=== PATIENT | female | born 1945 | race Caucasian/White ===

== ENCOUNTER 2024-10-09 17:42 | Inpatient (IN) ==
[2024-10-09] MEDS ORDERED: ONDANSETRON HCL/PF 4 MG/2 ML VIAL ONE (18:17)
[2024-10-09] MEDS: MORPHINE SULFATE 2 MG/ML CARTRIDGE IV ONE ×2 (18:17→20:16)
[2024-10-09] MEDS: ONDANSETRON HCL/PF 4 MG/2 ML VIAL IVP ONE (18:19)
--- NOTE | 2024-10-09 19:01 | Emergency Department Note ---
HPI - Fall General Chief Complaint: Fall Stated Complaint: right hip pain Time Seen by Provider: 10/09/24 17:59 Source: patient and EMS Mode of arrival: ambulance Limitations: no limitations History of Present Illness HPI Narrative: 78 yo female brought in from her home via EMS with increasing pain and inability, now, to move her right hip following a ground-level fall this morning. Patient relates that she simply lost her footing, may have then tripped over a small box and fell onto her right hip and buttocks. Reports that she was initially able to get up and walk around her house but her pain has increased throughout the afternoon. Discomfort is in the Rt groin, hip and buttocks. She is not taking any blood thinners. Allergies as noted. I have personally reviewed the TRIAGE and nursing intake notes and I agree with those. I also reviewed the available medical history and prior visit notes (where available) for this patient. No NVD, chest or abdominal pain. VSS, AAOx4, GCS=15, ambulatory, NAD. Tolerating PO. complaint: Reports fall Onset (ago): hour(s) (8) Fall from: Reports standing Fall witnessed: Reports no Place fall occurred: Reports home Loss of consciousness: none Prolonged down time: Reports no Symptoms prior to fall: Reports none Context: Reports tripped/slipped and history of frequent falls Location of injury: Reports buttocks Location of injury - extremities: Right: thigh Severity: moderate Quality: Reports dull, aching and throbbing Associated symptoms (after fall): Reports denies Related Data Home Medications Medication Instructions Recorded Confirmed albuterol sulfate 90 mcg/actuation 2 puff inhalation Q4H PRN wheezing 10/09/24 10/09/24 aerosol inhaler amitriptyline 25 mg tablet 25 mg PO DAILY 10/09/24 10/09/24 atorvastatin 20 mg tablet 20 mg PO BEDTIME 10/09/24 10/09/24 duloxetine 30 mg capsule,delayed 30 mg PO DAILY 10/09/24 10/09/24 release gabapentin 300 mg capsule 300 mg PO DAILY 10/09/24 10/09/24 hydrocodone 10 mg-acetaminophen 1 tab PO TID 10/09/24 10/09/24 325 mg tablet levocetirizine 5 mg tablet 5 mg PO DAILY 10/09/24 10/09/24 meloxicam 15 mg tablet 15 mg PO DAILY 10/09/24 10/09/24 montelukast 10 mg tablet 10 mg PO DAILY 10/09/24 10/09/24 Allergies Allergy/AdvReac Type Severity Reaction Status Date / Time amoxicillin (From Augmentin) Allergy Verified 10/09/24 17:53 clavulanic acid (From Allergy Verified 10/09/24 17:53 Augmentin) succinylcholine Allergy "IT TOOK Verified 10/09/24 17:53 ME A LONG TIME TO WAKE UP" Review of Systems 2 Status of ROS 10 or more systems reviewed and unremark able except as noted in history and below [facility] Medical History (Updated 10/09/24 @ 17:56 by Renetta Huntley, [place]) Glaucoma COPD (chronic obstructive pulmonary disease) Surgical History (Updated 10/09/24 @ 17:56 by Renetta Huntley RN) History of phacoemulsification of cataract of both eyes with intraocular lens implantation Status post right foot surgery History of hysterectomy Social History Smoking status: current every day smoker Feel stressed/tense/nervous/anxious/difficulty sleeping: to some extent Life stressor details: current medical condition Exam 2 Constitutional: normal general appearance, no apparent distress, average body habitus, no limitations and alert Vital Signs - 24 hr 10/09/24 17:42 10/09/24 18:00 10/09/24 18:15 Temperature 97.4 F L Pulse Rate 97 H 92 H 99 H Respiratory Rate 20 2 L 20 Blood Pressure 154/67 139/67 144/81 Pulse Oximetry 94 L 93 L 99 Oxygen Delivery Nc thod Room Air Room Air Room Air Oxygen Flow Rate 10/09/24 18:45 10/09/24 19:03 10/09/24 19:15 Temperature Pulse Rate 89 95 H 95 H Respiratory Rate 20 20 22 Blood Pressure 115/60 140/69 120/68 Pulse Oximetry 89 L 89 L 95 Oxygen Delivery Nc thod Room Air Room Air Room Air Oxygen Flow Rate 10/09/24 19:30 10/09/24 20:00 10/09/24 20:30 Temperature Pulse Rate 94 H 88 95 H Respiratory Rate 20 20 20 Blood Pressure 118/66 133/71 126/65 Pulse Oximetry 94 L 97 95 Oxygen Delivery Nc thod Room Air Room Air Nasal Cannula Oxygen Flow Rate 2 10/09/24 21:00 10/09/24 21:30 Temperature Pulse Rate 93 H 95 H Respiratory Rate 16 16 Blood Pressure 119/62 119/50 Pulse Oximetry 97 95 Oxygen Delivery Me thod Nasal Cannula Nasal Cannula Oxygen Flow Rate 2 2 HENMT: normocephalic, head/scalp atraumatic, hearing grossly normal bilaterally, external ears normal, oral mucous membranes normal, oropharynx normal and dentition normal Eyes: PERRL, EOMs intact bilaterally, conjunctivae normal, normal visual rodriguez by confrontation, alignment normal, periorbital findings normal and no nystagmus Neck/C-Spine: visual inspection normal, trachea midline, cervical spine nontender, cervical full ROM noted and supple Lymph: no lymphadenopathy noted Chest: inspection of chest normal and palpation of chest normal Respiratory: breath sounds equal bilaterally, normal respiratory effort, no retractions and no use of accessory muscles Cardiovascular: normal heart rate noted, regular rhythm noted and no JVD Gastrointestinal: abdomen normal to inspection and nontender to palpation Genitourinary: no CVA tenderness and bladder normal to palpation Back/Pelvis: spine normal to inspection and no paraspinal muscle tenderness noted Mild pain elicited with pelvic compression Rt side. No crepitance noted. Slight lateral deflection noted Rt side ischium. Extremities: RLE mildly fore-shortened. No internal or external rotation noted. Some TTP with internal rotation of thigh. 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 pain on palpation and movement Course Course Hospital Course: After review of the CC/HPI I performed a [id number] physical examination. At this point I was able to formulate a provisional DDx. Based on those findings, laboratory and radiology diagnostic studies were ordered including but not limited to CBC, CMP, lactic acid, pancreatic enzymes, cardiac enzymes, urinalysis, EKG, blood gases, screenings for COVID/influenza/strep/RSV, chest and/or abdominal xrays or CT scans in preparation of admission or transfer. Intravenous access was obtained where necessary. Blood and/or urine cultures were submitted If indicated for sepsis. Initial intervention in the ED included IV morphine and antiemetic, and the patient is now stable and more comfortable. In addition, I have initiated treatment in the form of urinary catheterization to help alleviate discomfort. Reevaluation(s) Reevaluation #1: Now much more comfortable. Pending CT results. Plain films radiograph appears to indicate fracture with moderate distraction to Rt inferior and superior pubic rami. She and daughter have been made aware and are in agreement with plan. Time: 18:59 Reevaluation #2: Patient care handed off to LÓPEZ Cobb for deposition (admission or transfer). She is comfortable. I suspect we will admit for comfort measures, case management and possible swing bed / rehab. Time: 20:14 Vital Signs Vital signs: Vital Signs Temperature 97.4 F L 10/09/24 17:42 Pulse Rate 97 H 10/09/24 17:42 Respiratory Rate 20 10/09/24 17:42 Blood Pressure 154/67 10/09/24 17:42 Pulse Oximetry 94 L 10/09/24 17:42 Oxygen Delivery Method Room Air 10/09/24 17:42 Temperature 97.4 F L 10/09/24 17:42 Pulse Rate 95 H 10/09/24 21:30 Respiratory Rate 16 10/09/24 21:30 Blood Pressure 119/50 10/09/24 21:30 Pulse Oximetry 95 10/09/24 21:30 Oxygen Delivery Method Nasal Cannula 10/09/24 21:30 Oxygen Flow Rate 2 10/09/24 21:30 MDM - Fall MDM Narrative Medical decision making narrative: Medical Decision Making this patient involved physical exam, CBC, CMP, PT, PTT, INR, urinalysis x 2, CT of the pelvis without contrast, plain film x-rays of the hip and pelvis, N12 or COVID. Differential Diagnosis Differential diagnosis: Likely other (Pelvic fracture, Rt hip fracture) Medical Records Attestation: I reviewed the patient's medical records. Lab Data Attestation: I reviewed the patient's lab results. Labs: Lab Results 10/09/24 10/09/24 10/09/24 Range/Units 18:50 18:55 21:50 WBC 15.8 H (4.3-9.3) K/uL RBC 4.1 (4.00-5.50) M/uL Hgb 11.7 L (12.5-15.8) gm/dL Hct 35.7 L (35.9-46.7) % MCV 86.8 (81.0-93.7) fl MCH 28.4 (27.6-32.2) pg MCHC 32.7 L (33.1-35.3) g/dl RDW 15.3 H (11.4-14.2) % Plt Count 319 (152-353) K/uL MPV 7.3 (6.9-10.8) fl Gran % 81.1 H (47.8-71.3) % Lymph % (Auto) 10.8 L (20.0-43.0) % [place] % (Auto) 7.5 (3.6-9.8) % Eos % (Auto) 0.4 (0.4-2.8) % Baso % (Auto) 0.2 (0.1-0.85) Lymph # (Auto) 1.7 (1.1-3.1) [place] # (Auto) 1.2 (1.1-3.1) Eos # (Auto) 0.1 (0.0-0.2) Baso # (Auto) 0.0 (0.0-0.1) Absolute Gran (auto) 12.8 H (2.3-6.0) PT 13.0 (12.1-15.0) SECONDS PT Normal Control 13.7 INR 0.93 APTT 31.0 (23.9-36.7) SECONDS Sodium 138 (136-145) mmol/L Potassium 4.0 (3.6-5.2) mmol/L Chloride 106.0 (98-107) mmol/L Carbon Dioxide 28 (21-32) mmol/L Anion Gap 4.0 (4-14) mEq/L BUN 11 (7-18) mg/dL Creatinine 0.6 (0.6-1.3) mg/dL Estimated GFR 92.4 (>59.9) Glucose 116 H (70-110) mg/dL Calcium 8.6 (8.5-10.1) mg/dL Total Bilirubin 0.62 (0.0-1.0) mg/dL AST 27 (15-37) U/L ALT 30 (30-65) U/L Alkaline Phosphatase 79 (50-136) U/L Total Protein 6.4 (6.4-8.2) g/dL Albumin 3.2 L (3.4-5.0) g/dL Urine Color Yellow Yellow (STRAW/YELL.) Urine Appearance Clear Clear (CLEAR) Ur Specific [place] 1.015 1.015 (1.001-1.035) Urine Protein Negative Negative (NEGATIVE) Urine Glucose (UA) Normal Normal (NORMAL) Urine Ketones Negative Negative (NEGATIVE) Urine Occult Blood Negative Negative (NEG - TRACE) Urine Nitrite Negative Negative (NEGATIVE) Urine Bilirubin Negative Negative (NEGATIVE) Urine Urobilinogen Normal Normal (NORMAL) Ur Leukocyte Esterase Negative Negative (NEGATIVE) Fluid pH 6.0 6.0 (5 - 9) COVID-19 (DEEPTHI) Not detected (Not Detectd) Imaging Data Imaging ordered: Chest x-ray (NAD) and CT scan - pelvis ( There is a displaced fracture involving the midportion of the right superior and inferior pubic rami.) Attestation: I have reviewed the pertinent imaging results. My impression: Inferior/superior pubic rami fractures, displaced Radiologist's impression: EXAM: CT PELVIS WITHOUT CONTRAST HISTORY: Pelvic fracture COMPARISON: None. TECHNIQUE: Axial images were acquired of the pelvis without IV contrast. Sagittal and coronal reformatted images were provided. All images were reviewed in a variety of windows and levels. RADIATION REDUCTION TECHNIQUE: Automated exposure control, Adjustment of the mA and/or kV according to patient size, or iterative reconstruction techniques were used. FINDINGS: Please note that lack of IV contrast limits evaluation of soft tissue structures and vascular detail. Constipation is noted. Status post hysterectomy. Limited visualization of the urinary bladder is grossly unremarkable. Moderate calcified atheromatous plaque burden is noted. There is a displaced fracture involving the midportion of the right superior and inferior pubic rami. There is grade 1 anterolisthesis of L4 over L5 with bilateral L4 pars defects. IMPRESSION: 1. There is a displaced fracture involving the midportion of the right superior and inferior pubic rami. THIS IS AN ELECTRONICALLY VERIFIED FINAL REPORT 10/09/2024 7:36 PM - Electronically signed by Jah Devries MD Core Measures AMI core measures followed: No Measure exclusions: not indicated Discharge Plan Discharge Patient Disposition: Admitted As Inpatient Condition: Stable Chief Complaint: Fall Clinical Impression: Pelvic fracture, Fracture of superior ramus of right pubis, Closed fracture of inferior pubic ramus, Leukocytosis, Intractable pain Prescriptions: No Action albuterol sulfate 90 mcg/actuation HFA aerosol inhaler 2 puff INHALATION Q4H PRN (Reason: wheezing) amitriptyline 25 mg tablet 25 mg PO DAILY atorvastatin 20 mg tablet 20 mg PO BEDTIME duloxetine 30 mg capsule,delayed release(DR/EC) 30 mg PO DAILY gabapentin 300 mg capsule 300 mg PO DAILY hydrocodone-acetaminophen 10-325 mg tablet 1 tab PO TID levocetirizine 5 mg tablet 5 mg PO DAILY meloxicam 15 mg tablet 15 mg PO DAILY montelukast 10 mg tablet 10 mg PO DAILY Print Language: Bur[place]ian Interventions: ED Discharge Assessment Last Done: 10/09/24 21:40 Emergency Department Charge Sheet Last Done: 10/09/24 22:17 Referrals: Kaley Nails NP [Primary Care Provider] - Time of Disposition: 21:30
[2024-10-09 19:27] LABS: Basophils%(Percent) Auto 0.2 (0.1-0.85); Eosinophils#(Absolute)Auto 0.1 (0.0-0.2); Eosinophils%(Percent) Auto 0.4 % (0.4-2.8); Granulocytes % - Auto 81.1 % (47.8-71.3); Granulocytes#(Absolute)- Auto 12.8 (2.3-6.0); Hematocrit 35.7 % (35.9-46.7); Mean Corpuscular Volume 86.8 fl (81.0-93.7); Monocytes #(Absolute)- Auto 1.2 (1.1-3.1); Monocytes %(Percent)- Auto 7.5 % (3.6-9.8); Platelet Count 319 K/uL (152-353); White Blood Count 15.8 K/uL (4.3-9.3)
[2024-10-09 19:38] LABS: Specific Gravity Urine 1.015 (1.001-1.035); Urine Appearance CLEAR (CLEAR); Urine Blood NEGATIVE (NEG - TRACE); Urine Color YELLOW (STRAW/YELL.)
[2024-10-09 19:39] LABS: Urine Urobilinogen Normal (NORMAL)
[2024-10-09 19:40] LABS: INR 0.93
[2024-10-09 22:03] LABS: Specific Gravity Urine 1.015 (1.001-1.035); Urine Appearance CLEAR (CLEAR); Urine Blood NEGATIVE (NEG - TRACE); Urine Color YELLOW (STRAW/YELL.); Urine Urobilinogen Normal (NORMAL)
[2024-10-09] MEDS ORDERED: DOCUSATE SODIUM 100 MG CAPSULE PO PRN (22:22)
[2024-10-09] MEDS ORDERED: MAGNESIUM, ALUMINUM HYDROXIDE 30 ML ORAL.SUSP PO PRN (22:22)
[2024-10-09] MEDS ORDERED: ONDANSETRON HCL/PF 4 MG/2 ML VIAL INJ PRN (22:22)
[2024-10-09] MEDS ORDERED: MORPHINE SULFATE 2 MG/ML CARTRIDGE IV PRN (22:22)
[2024-10-09] MEDS ORDERED: ACETAMINOPHEN 1000 MG/100 ML 1,000 MG/100 ML IV.SOLN IV PRN (22:27)
[2024-10-09] MEDS: 0.9 % SODIUM CHLORIDE 1000 ML 1,000 ML IV SCH (23:00)
[2024-10-09] MEDS: CEFTRIAXONE SODIUM 1 GM in 0.9 % SODIUM CHLORIDE MB+ 50 ML IV ONE (23:02)
[2024-10-09] MEDS ORDERED: 0.9 % SODIUM CHLORIDE MB+ 50 ML IV ONE (23:17)
[2024-10-09] MEDS ORDERED: CEFTRIAXONE SODIUM 1 GM VIAL ONE (23:18)
[2024-10-10] MEDS: HYDROCODONE/ACETAMINOPHEN 7.5/325MG TABLET PO PRN (00:20)
[2024-10-10 05:42] LABS: Basophils #(Absolute) Auto 0.1 (0.0-0.1); Basophils%(Percent) Auto 0.5 (0.1-0.85); Eosinophils#(Absolute)Auto 0.1 (0.0-0.2); Eosinophils%(Percent) Auto 1.2 % (0.4-2.8); Granulocytes % - Auto 67.3 % (47.8-71.3); Mean Corpuscular Volume 87.4 fl (81.0-93.7); Monocytes #(Absolute)- Auto 1.3 (1.1-3.1); Monocytes %(Percent)- Auto 11.2 % (3.6-9.8); Platelet Count 289 K/uL (152-353); White Blood Count 11.8 K/uL (4.3-9.3)
[2024-10-10] MEDS: NICOTINE 21 MG/HR .TD24 TD SCH (08:22)
[2024-10-10] MEDS: PANTOPRAZOLE SODIUM 40 MG TABLET.DR PO SCH (08:27)
--- NOTE | 2024-10-10 10:38 | History & Physical Report ---
H&P: HPI History of Present Illness Chief complaint: DISPLACED RAMI FRACTURE,LEUKOCYTOSIS,INTRACTABLE P Narrative: Patient reports she was packing up to move and tripped over a box. She admits pain 7/10 with any degree of movement. Denies any other complaints. No n/v. Admits she is chronically constipated. No dizziness or blurred vision. No chest pain. I have discussed the plan is for us to manage pain here until we can consult with Ortho on Saturday to see if it is necessary for her to undergo surgery. If needed at that time will be able to send out for surgery. If not we will have PT evaluate and if needed will admit transfer to facility with Rehab capability. Patient and son who is at bedside understand and agree to plan of care. Review of Systems Status of ROS 10 or more systems reviewed and unremark able except as noted in history and below [facility] Medical History (Updated 10/10/24 @ 17:34 by Daniella Guaman NP) Glaucoma COPD (chronic obstructive pulmonary disease) Surgical History (Updated 10/09/24 @ 17:56 by Renetta Huntley RN) History of phacoemulsification of cataract of both eyes with intraocular lens implantation Status post right foot surgery History of hysterectomy Social History Smoking status: current every day smoker Problems where you live: no known problems Highest level of school completed/degree received: high school Feel stressed/tense/nervous/anxious/difficulty sleeping: to some extent Life stressor details: current medical condition Meds Home Medications and Allergies Home Medications Medication Instructions Recorded Confirmed Type albuterol sulfate 90 mcg/actuation 2 puff inhalation Q4H PRN wheezing 10/09/24 10/09/24 History aerosol inhaler amitriptyline 25 mg tablet 25 mg PO DAILY 10/09/24 10/09/24 History atorvastatin 20 mg tablet 20 mg PO BEDTIME 10/09/24 10/09/24 History duloxetine 30 mg capsule,delayed 30 mg PO DAILY 10/09/24 10/09/24 History release gabapentin 300 mg capsule 300 mg PO DAILY 10/09/24 10/09/24 History hydrocodone 10 mg-acetaminophen 1 tab PO TID 10/09/24 10/09/24 History 325 mg tablet levocetirizine 5 mg tablet 5 mg PO DAILY 10/09/24 10/09/24 History meloxicam 15 mg tablet 15 mg PO DAILY 10/09/24 10/09/24 History montelukast 10 mg tablet 10 mg PO DAILY 10/09/24 10/09/24 History Allergies Allergy/AdvReac Type Severity Reaction Status Date / Time amoxicillin (From Augmentin) Allergy Verified 10/09/24 17:53 clavulanic acid (From Allergy Verified 10/09/24 17:53 Augmentin) succinylcholine Allergy "IT TOOK Verified 10/09/24 17:53 ME A LONG TIME TO WAKE UP" Exam Constitutional: normal general appearance, no apparent distress and average body habitus Vital Signs - 24 hr 10/09/24 17:42 10/09/24 18:00 10/09/24 18:15 Temperature 97.4 F L Pulse Rate 97 H 92 H 99 H Pulse Rate [Brachi al] Respiratory Rate 20 2 L 20 Blood Pressure 154/67 139/67 144/81 Blood Pressure [Le ft Arm] Pulse Oximetry 94 L 93 L 99 Oxygen Delivery Me thod Room Air Room Air Room Air Oxygen Flow Rate Fraction of Inspir ed Oxygen 10/09/24 18:45 10/09/24 19:03 10/09/24 19:15 Temperature Pulse Rate 89 95 H 95 H Pulse Rate [Brachi al] Respiratory Rate 20 20 22 Blood Pressure 115/60 140/69 120/68 Blood Pressure [Le ft Arm] Pulse Oximetry 89 L 89 L 95 Oxygen Delivery Me thod Room Air Room Air Room Air Oxygen Flow Rate Fraction of Inspir ed Oxygen 10/09/24 19:30 10/09/24 20:00 10/09/24 20:30 Temperature Pulse Rate 94 H 88 95 H Pulse Rate [Brachi al] Respiratory Rate 20 20 20 Blood Pressure 118/66 133/71 126/65 Blood Pressure [Le ft Arm] Pulse Oximetry 94 L 97 95 Oxygen Delivery Me thod Room Air Room Air Nasal Cannula Oxygen Flow Rate 2 Fraction of Inspir ed Oxygen 10/09/24 21:00 10/09/24 21:30 10/09/24 22:00 Temperature Pulse Rate 93 H 95 H 93 H Pulse Rate [Brachi al] Respiratory Rate 16 16 16 Blood Pressure 119/62 119/50 125/64 Blood Pressure [Le ft Arm] Pulse Oximetry 97 95 93 L Oxygen Delivery Me thod Nasal Cannula Nasal Cannula Nasal Cannula Oxygen Flow Rate 2 2 2 Fraction of Inspir ed Oxygen 10/09/24 22:23 10/09/24 23:00 10/09/24 23:29 Temperature 98.5 F Pulse Rate Pulse Rate [Brachi al] 89 Respiratory Rate 17 20 Blood Pressure Blood Pressure [Le ft Arm] 116/47 Pulse Oximetry 93 L 93 L Oxygen Delivery Me thod Room Air Nasal Cannula Oxygen Flow Rate 2 Fraction of Inspir ed Oxygen 28 10/09/24 23:55 10/09/24 23:55 10/10/24 03:47 Temperature 98.5 F 98.8 F Pulse Rate Pulse Rate [Brachi al] 89 90 Respiratory Rate 17 18 Blood Pressure Blood Pressure [Le ft Arm] 116/47 111/59 Pulse Oximetry 93 L 93 L Oxygen Delivery Me thod Room Air Nasal Cannula Room Air Oxygen Flow Rate 2 Fraction of Inspir ed Oxygen 10/10/24 08:00 Temperature 98.5 F Pulse Rate Pulse Rate [Brachi al] 94 H Respiratory Rate 20 Blood Pressure Blood Pressure [Le ft Arm] 138/66 Pulse Oximetry 94 L Oxygen Delivery Me thod Nasal Cannula Oxygen Flow Rate 2 Fraction of Inspir ed Oxygen HENMT: normocephalic and head/scalp atraumatic Eyes: conjunctivae normal and no scleral icterus Neck/C-Spine: visual inspection normal and trachea midline Chest: inspection of chest normal and palpation of chest normal Respiratory: breath sounds equal bilaterally, normal respiratory effort, clear to auscultation bilaterally, no wheezes, no rales and no retractions Cardiovascular: normal heart rate noted and regular rhythm noted Gastrointestinal: abdomen normal to inspection, abdomen soft to palpation, nontender to palpation, nondistended and normoactive bowel sounds (hypoactive) Genitourinary: deferred Extremities: normal to inspection and normal to palpation 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: adding 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 servicer II-XII 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, no movement abnormality noted, no focal motor deficit noted and no sensory deficits noted Psychiatry: oriented x3, thought process normal, cooperative, affect normal and psychomotor activity normal Skin: skin color normal and no rash Assessment and Plan Assessment and Plan (1) Fracture of pubic ramus: Qualifiers: Encounter type: initial encounter Laterality: right Code(s): S32.599A - Other specified fracture of unspecified pubis, initial encounter for closed fracture (2) Pain due to fracture: Code(s): T14.8XXA - Other injury of unspecified body region, initial encounter (3) Community acquired pneumonia of left lower lobe of lung: Code(s): J18.9 - Pneumonia, unspecified organism Plan Pain management with prn IV Morphine and hydrocodone PO Consult [facility] Saturday, transfer if surgery required. If no surgery required then will evaluate for Rehab swing bed admission with PT. Continue Home meds Reposition patient as possible to prevent skin breakdown. Start Azithromycin and Rocephin IV for pneumonia Left lower lobe Regular diet Results Labs Labs: CBC 10/09/24 10/10/24 Range/Units 18:50 05:40 WBC 15.8 H 11.8 H (4.3-9.3) K/uL RBC 4.1 3.8 L (4.00-5.50) M/uL Hgb 11.7 L 10.9 L (12.5-15.8) gm/dL Hct 35.7 L 33.0 L (35.9-46.7) % Plt Count 319 289 (152-353) K/uL Gran % 81.1 H 67.3 (47.8-71.3) % Lymph % (Auto) 10.8 L 19.8 L (20.0-43.0) % [place] % (Auto) 7.5 11.2 H (3.6-9.8) % Eos % (Auto) 0.4 1.2 (0.4-2.8) % Baso % (Auto) 0.2 0.5 (0.1-0.85) Lymph # (Auto) 1.7 2.3 (1.1-3.1) [place] # (Auto) 1.2 1.3 (1.1-3.1) Eos # (Auto) 0.1 0.1 (0.0-0.2) Baso # (Auto) 0.0 0.1 (0.0-0.1) Absolute Gran (auto) 12.8 H 8.0 H (2.3-6.0) CMP 10/09/24 10/10/24 18:50 05:40 Sodium 138 140 Potassium 4.0 4.0 Chloride 106.0 105.0 Carbon Dioxide 28 31 BUN 11 11 Creatinine 0.6 0.6 Glucose 116 H 93 Calcium 8.6 8.1 L Liver Function 10/09/24 Range/Units 18:50 Total Bilirubin 0.62 (0.0-1.0) mg/dL AST 27 (15-37) U/L ALT 30 (30-65) U/L Alkaline Phosphatase 79 (50-136) U/L Albumin 3.2 L (3.4-5.0) g/dL Urine 10/09/24 10/09/24 18:55 21:50 Urine Color Yellow Yellow Urine Appearance Clear Clear Ur Specific [place] 1.015 1.015 Urine Protein Negative Negative Urine Glucose (UA) Normal Normal Imaging Attestation: I have reviewed the pertinent imaging results.
[2024-10-10] MEDS: AZITHROMYCIN 500 MG 500 MG in 0.9 % SODIUM CHLORIDE 250 ML IV SCH (15:18)
[2024-10-10] MEDS: CEFTRIAXONE SODIUM 1 GM in 0.9 % SODIUM CHLORIDE MB+ 50 ML IV SCH (22:34)
[2024-10-11 05:08] LABS: Basophils%(Percent) Auto 0.3 (0.1-0.85); Eosinophils#(Absolute)Auto 0.2 (0.0-0.2); Eosinophils%(Percent) Auto 1.5 % (0.4-2.8); Granulocytes % - Auto 69.4 % (47.8-71.3); Granulocytes#(Absolute)- Auto 7.8 (2.3-6.0); Hematocrit 35.5 % (35.9-46.7); Mean Corpuscular Volume 86.5 fl (81.0-93.7); Monocytes %(Percent)- Auto 9.4 % (3.6-9.8); Platelet Count 298 K/uL (152-353); White Blood Count 11.2 K/uL (4.3-9.3)
[2024-10-11 05:43] LABS: Potassium 3.7 mmol/L (3.6-5.2)
--- NOTE | 2024-10-11 08:35 | Progress Note ---
Progress Note: Subjective Subjective Interval history: "I am feeling ok". Exam Constitutional: normal general appearance, no apparent distress, average body habitus, no limitations and alert Vital Signs - 24 hr 10/10/24 12:19 10/10/24 15:32 10/10/24 20:00 Temperature 98.8 F 98.9 F Pulse Rate [Brachi al] 94 H 90 88 Respiratory Rate 20 20 16 Blood Pressure [Le ft Arm] 140/69 135/66 149/74 Pulse Oximetry 94 L 95 92 L Oxygen Delivery Me thod Nasal Cannula Nasal Cannula Nasal Cannula Oxygen Flow Rate 2 1 1 10/10/24 23:31 10/11/24 00:02 10/11/24 03:47 Temperature 98.5 F 98.7 F Pulse Rate [Brachi al] 90 90 Respiratory Rate 19 19 Blood Pressure [Le ft Arm] 148/66 143/77 Pulse Oximetry 96 97 92 L Oxygen Delivery Me thod Room Air Room Air Room Air Oxygen Flow Rate 2 10/11/24 07:43 Temperature 98.6 F Pulse Rate [Brachi al] 91 H Respiratory Rate 20 Blood Pressure [Le ft Arm] 132/75 Pulse Oximetry 95 Oxygen Delivery Me thod Nasal Cannula Oxygen Flow Rate 2 HENMT: normocephalic, head/scalp atraumatic, hearing grossly normal bilaterally, external ears normal, oral mucous membranes normal, oropharynx normal and dentition normal Eyes: PERRL, EOMs intact bilaterally, conjunctivae normal, no scleral icterus, normal visual rodriguez by confrontation, alignment normal, periorbital findings normal and no nystagmus Neck/C-Spine: visual inspection normal, trachea midline, cervical spine nontender, cervical full ROM noted and supple Lymph: no lymphadenopathy noted Chest: inspection of chest normal and palpation of chest normal Respiratory: breath sounds equal bilaterally, normal respiratory effort, clear to auscultation bilaterally, no wheezes, no rales, no retractions and no use of accessory muscles Cardiovascular: normal heart rate noted, regular rhythm noted and no JVD Gastrointestinal: abdomen normal to inspection, abdomen soft to palpation, nontender to palpation, nondistended and normoactive bowel sounds (hypoactive) Genitourinary: no CVA tenderness and bladder normal to palpation deferred Back/Pelvis: spine normal to inspection and no paraspinal muscle tenderness noted Mild pain elicited with pelvic compression Rt side. No crepitance noted. Slight lateral deflection noted Rt side ischium. Extremities: normal to inspection and normal to palpation RLE mildly fore-shortened. No internal or external rotation noted. Some TTP with internal rotation of thigh. Neurology: bariatric nurse II-XII intact, no movement abnormality noted, no focal motor deficit noted, no sensory deficits noted, gait abnormality noted (unable to ac cess), speech normal, no pronator drift noted and GCS normal Psychiatry: Mental Status Exam documented within this Exam's Psych section mental status grossly normal, oriented x3, thought process normal, cooperative, affect normal and psychomotor activity normal Skin: skin color normal, no rash, no ecchymosis noted, no lacerations and skin turgor normal Progress Note: Objective Labs Labs: CBC 10/11/24 Range/Units 04:20 WBC 11.2 H (4.3-9.3) K/uL RBC 4.1 (4.00-5.50) M/uL Hgb 11.4 L (12.5-15.8) gm/dL Hct 35.5 L (35.9-46.7) % Plt Count 298 (152-353) K/uL Gran % 69.4 (47.8-71.3) % Lymph % (Auto) 19.4 L (20.0-43.0) % [place] % (Auto) 9.4 (3.6-9.8) % Eos % (Auto) 1.5 (0.4-2.8) % Baso % (Auto) 0.3 (0.1-0.85) Lymph # (Auto) 2.2 (1.1-3.1) [place] # (Auto) 1.0 L (1.1-3.1) Eos # (Auto) 0.2 (0.0-0.2) Baso # (Auto) 0.0 (0.0-0.1) Absolute Gran (auto) 7.8 H (2.3-6.0) CMP 10/11/24 04:20 Sodium 141 Potassium 3.7 Chloride 106.0 Carbon Dioxide 27 BUN 7 Creatinine 0.5 L Glucose 82 Calcium 8.4 L Urine 10/09/24 10/09/24 18:55 21:50 Urine Color Yellow Yellow Urine Appearance Clear Clear Ur Specific [place] 1.015 1.015 Urine Protein Negative Negative Urine Glucose (UA) Normal Normal Progress Note: A&P Assessment and Plan (1) Fracture of pubic ramus: Qualifiers: Encounter type: initial encounter Laterality: right (2) Pain due to fracture: (3) Community acquired pneumonia of left lower lobe of lung: Plan Pain management with prn IV Morphine and hydrocodone PO Consult [facility] Saturday, transfer if surgery required. If no surgery required then will evaluate for Rehab swing bed admission with PT. Continue Home meds Reposition patient as possible to prevent skin breakdown. Start Azithromycin and Rocephin IV for pneumonia Left lower lobe Regular diet Incentive Spirometer Continue Antibiotics for LLL Pneumonia, Rocephin and Azithromycin Repeat Chest Xray in am. Fall precautions Fall Risk Details Perry Fall Scale Risk Level: High Fall Risk Current Medications: Current Medications Hydrocodone Bitart/Acetaminophen (Hydrocodone/Acetaminophen 7.5/325mg Tablet) 1 each PO Q4H PRN PRN Reason: Moderate Pain SCALE 5-7 Last Admin: 10/11/24 05:02 Dose: 1 each Alprazolam (Alprazolam 1 Mg Tablet) 1 mg PO BEDTIME [facility] Docusate Sodium (Docusate Sodium 100 Mg Capsule) 100 mg PO DAILY PRN PRN Reason: Constipation Sodium Chloride (Sodium Chloride) 1,000 mls @ 75 mls/hr IV CONT [facility] Last Admin: 10/11/24 05:50 Dose: Not Given Acetaminophen (Acetaminophen 1000 Mg/100 Ml) 1,000 mg in 100 mls @ 400 mls/hr IV Q6H PRN PRN Reason: Pain Ceftriaxone Sodium 1 gm/ (Sodium Chloride) 50 mls @ 100 mls/hr IV Q24H [facility] Last Infusion: 10/10/24 23:04 Dose: Infused Azithromycin 500 mg/ Sodium (Chloride) 250 mls @ 250 mls/hr IV DAILY [facility] Last Infusion: 10/10/24 17:02 Dose: Infused Magnesium Hydroxide (Magnesium, Aluminum Hydroxide 30 Ml Oral.Susp) 30 ml PO DAILY PRN PRN Reason: Heartburn Morphine Sulfate (Morphine Sulfate 2 Mg/Ml Cartridge) 2 mg IV Q4H PRN PRN Reason: Severe Pain SCALE 8-10 Nicotine (Nicotine 21 Mg/Hr .Td24) 1 each TD DAILY [facility] Last Admin: 10/10/24 08:27 Dose: 1 each Ondansetron HCl (Ondansetron Hcl/Pf 4 Mg/2 Ml Vial) 4 mg INJ Q6H PRN PRN Reason: Nausea And Vomiting Pantoprazole Sodium (Pantoprazole Sodium 40 Mg Tablet.Dr) 40 mg PO DAILY [facility] Last Admin: 10/10/24 08:27 Dose: 40 mg Time Spent With Patient Time: Total time spent is greater than 50% in coordination of care (as documented) at patient's floor/unit and/or counseling patient: Time with patient: greater than 35 minutes
[2024-10-11] MEDS: ALPRAZolam 1 MG TABLET PO SCH ×2 (08:38→20:42)
[2024-10-12 05:25] LABS: Basophils%(Percent) Auto 0.3 (0.1-0.85); Eosinophils#(Absolute)Auto 0.3 (0.0-0.2); Eosinophils%(Percent) Auto 2.2 % (0.4-2.8); Granulocytes % - Auto 68.5 % (47.8-71.3); Granulocytes#(Absolute)- Auto 8.1 (2.3-6.0); Hematocrit 35.8 % (35.9-46.7); Mean Corpuscular Volume 86.3 fl (81.0-93.7); Monocytes #(Absolute)- Auto 1.4 (1.1-3.1); Monocytes %(Percent)- Auto 11.5 % (3.6-9.8); Platelet Count 308 K/uL (152-353); White Blood Count 11.9 K/uL (4.3-9.3)
[2024-10-12 05:35] LABS: Potassium 3.6 mmol/L (3.6-5.2)
[2024-10-12] MEDS: DULOXETINE HCL 30 MG CAPSULE.DR PO SCH (11:46)
[2024-10-12] MEDS: AMITRIPTYLINE HCL 10 MG TABLET PO SCH (11:46)
[2024-10-12] MEDS: MELOXICAM 7.5 MG TABLET PO SCH (11:47)
[2024-10-12] MEDS: GABAPENTIN 300 MG CAPSULE PO SCH (11:47)
[2024-10-12] MEDS: MONTELUKAST SODIUM 10 MG TABLET PO SCH (11:47)
--- NOTE | 2024-10-12 15:13 | Progress Note ---
Progress Note: Subjective Subjective Interval history: "I am feeling ok". Exam Exam: Ms. Schultz is in bed this morning remaints on O2. Will attempt to titrate off. Vitals and labs at baseline. Family is wishing for her to transfer. Case was discused with Roberto Anaya at [facility] by staff and patient is not a surgical candidate. Family is still interested in seeking othopedic care and they are aware that it is not availalable on campus. Will consult [facility] for reassurance that patient is appropriate for OP. 1600 Consult with [facility] will contact orthop edics for further consult. Advised aleksandar larry rucker. Constitutional: normal general appearance, no apparent distress, average body habitus, no limitations and alert Vital Signs - 24 hr 10/11/24 15:56 10/11/24 19:16 10/11/24 20:11 Temperature 97.9 F 98.3 F Pulse Rate [Brachi al] 91 H 96 H Pulse Rate [Left B rachial] 96 H Respiratory Rate 20 22 Blood Pressure [Le ft Arm] 160/79 157/78 Pulse Oximetry 94 L 95 Oxygen Delivery Me thod Nasal Cannula Nasal Cannula Nasal Cannula Oxygen Flow Rate 2 2 2 Fraction of Inspir ed Oxygen 28 10/12/24 00:00 10/12/24 04:00 10/12/24 07:49 Temperature 98.4 F 97.6 F 98.5 F Pulse Rate [Brachi al] 82 87 Pulse Rate [Left B rachial] 82 87 89 Respiratory Rate 18 18 16 Blood Pressure [Le ft Arm] 125/63 153/73 154/75 Pulse Oximetry 92 L 96 93 L Oxygen Delivery Me thod Nasal Cannula Nasal Cannula Nasal Cannula Oxygen Flow Rate 2 2 2 Fraction of Inspir ed Oxygen 10/12/24 12:00 Temperature 97.9 F Pulse Rate [Brachi al] Pulse Rate [Left B rachial] 96 H Respiratory Rate 16 Blood Pressure [Le ft Arm] 140/64 Pulse Oximetry 93 L Oxygen Delivery Me thod Nasal Cannula Oxygen Flow Rate 2 Fraction of Inspir ed Oxygen HENMT: normocephalic, head/scalp atraumatic, hearing grossly normal bilaterally, external ears normal, oral mucous membranes normal, oropharynx normal and dentition normal Eyes: PERRL, EOMs intact bilaterally, conjunctivae normal, no scleral icterus, normal visual rodriguez by confrontation, alignment normal, periorbital findings normal and no nystagmus Neck/C-Spine: visual inspection normal, trachea midline, cervical spine nont cayetano, cervical full ROM noted and supple Lymph: no lymphadenopathy noted Chest: inspection of chest normal and palpation of chest normal Respiratory: breath sounds equal bilaterally, normal respiratory effort, clear to auscultation bilaterally, no wheezes, no rales, no retractions and no use of accessory muscles Cardiovascular: normal heart rate noted, regular rhythm noted and no JVD Gastrointestinal: abdomen normal to inspection, abdomen soft to palpation, nontender to palpation, nondistended and normoactive bowel sounds (hypoactive) Genitourinary: no CVA tenderness and bladder normal to palpation deferred Back/Pelvis: spine normal to inspection and no paraspinal muscle tenderness noted Mild pain elicited with pelvic compression Rt side. No crepitance noted. Slight lateral deflection noted Rt side ischium. Extremities: normal to inspection and normal to palpation RLE mildly fore-shortened. No internal or external rotation noted. Some TTP with internal rotation of thigh. 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, no movement abnormality noted, no focal motor deficit noted, no sensory deficits noted, gait abnormality noted (unable to access), speech normal, no pronator drift noted and GCS normal Psychiatry: Mental Status Exam documented within this Exam's Psych section mental status grossly normal, oriented x3, thought process normal, cooperative, affect normal and psychomotor activity normal Skin: skin color normal, no rash, no ecchymosis noted, no lacerations and skin turgor normal Progress Note: Objective Labs Labs: CBC 10/12/24 Range/Units 05:15 WBC 11.9 H (4.3-9.3) K/uL RBC 4.2 (4.00-5.50) M/uL Hgb 11.8 L (12.5-15.8) gm/dL Hct 35.8 L (35.9-46.7) % Plt Count 308 (152-353) K/uL Gran % 68.5 (47.8-71.3) % Lymph % (Auto) 17.5 L (20.0-43.0) % [place] % (Auto) 11.5 H (3.6-9.8) % Eos % (Auto) 2.2 (0.4-2.8) % Baso % (Auto) 0.3 (0.1-0.85) Lymph # (Auto) 2.1 (1.1-3.1) [place] # (Auto) 1.4 (1.1-3.1) Eos # (Auto) 0.3 H (0.0-0.2) Baso # (Auto) 0.0 (0.0-0.1) Absolute Gran (auto) 8.1 H (2.3-6.0) CMP 10/12/24 05:15 Sodium 140 Potassium 3.6 Chloride 105.0 Carbon Dioxide 29 BUN 8 Creatinine 0.6 Glucose 70 Calcium 8.4 L Urine 10/09/24 10/09/24 18:55 21:50 Urine Color Yellow Yellow Urine Appearance Clear Clear Ur Specific [place] 1.015 1.015 Urine Protein Negative Negative Urine Glucose (UA) Normal Normal Progress Note: A&P Assessment and Plan (1) Fracture of pubic ramus: Assessment and Plan: Consult PT/OT Consult [facility] Qualifiers: Encounter type: initial encounter Laterality: right (2) Pain due to fracture: Assessment and Plan: norco 7.5 q4hrs prn Morphine 2mg IV q4hrs prn (3) Community acquired pneumonia of left lower lobe of lung: Assessment and Plan: Zpak Rocephin 1gm IV daily Plan Pain management with prn IV Morphine and hydrocodone PO Consult [facility] Continue Home meds Start Azithromycin and Rocephin IV for pneumonia Left lower lobe Regular diet Incentive Spirometer Continue Antibiotics for LLL Pneumonia, Rocephin and Azithromycin Fall precautions Fall Risk Details Perry Fall Scale Risk Level: High Fall Risk Current Medications: Current Medications Hydrocodone Bitart/Acetaminophen (Hydrocodone/Acetaminophen 7.5/325mg Tablet) 1 each PO Q4H PRN PRN Reason: Moderate Pain SCALE 5-7 Last Admin: 10/12/24 11:53 Dose: 1 each Alprazolam (Alprazolam 1 Mg Tablet) 1 mg PO BEDTIME [facility]LS[facility] Last Admin: 10/11/24 20:42 Dose: 1 mg Amitriptyline HCl (Amitriptyline Hcl 10 Mg Tablet) 25 mg PO DAILY [facility] Last Admin: 10/12/24 11:46 Dose: 25 mg Atorvastatin Calcium (Atorvastatin Calcium 10 Mg Tablet) 20 mg PO BEDTIME [facility]LS[facility] Cetirizine HCl (Cetirizine Hcl 10 Mg Tablet) 5 mg PO BEDTIME [facility] Docusate Sodium (Docusate Sodium 100 Mg Capsule) 100 mg PO DAILY PRN PRN Reason: Constipation Docusate Sodium (Docusate Sodium 100 Mg Capsule) 100 mg PO BID [facility] Duloxetine HCl (Duloxetine Hcl 30 Mg Capsule.Dr) 30 mg PO DAILY [facility] Last Admin: 10/12/24 11:46 Dose: 30 mg Gabapentin (Gabapentin 300 Mg Capsule) 300 mg PO DAILY [facility] Last Admin: 10/12/24 11:47 Dose: 300 mg Sodium Chloride (Sodium Chloride) 1,000 mls @ 75 mls/hr IV CONT [facility] Last Admin: 10/12/24 11:47 Dose: 75 mls/hr Acetaminophen (Acetaminophen 1000 Mg/100 Ml) 1,000 mg in 100 mls @ 400 mls/hr IV Q6H PRN PRN Reason: Pain Ceftriaxone Sodium 1 gm/ (Sodium Chloride) 50 mls @ 100 mls/hr IV Q24H [facility] Last Infusion: 10/12/24 05:32 Dose: Infused Azithromycin 500 mg/ Sodium (Chloride) 250 mls @ 250 mls/hr IV DAILY [facility] Last Infusion: 10/12/24 09:44 Dose: Infused Magnesium Hydroxide (Magnesium, Aluminum Hydroxide 30 Ml Oral.Susp) 30 ml PO DAILY PRN PRN Reason: Heartburn Meloxicam (Meloxicam 7.5 Mg Tablet) 15 mg PO DAILY [facility] Last Admin: 10/12/24 11:47 Dose: 15 mg Montelukast Sodium (Montelukast Sodium 10 Mg Tablet) 10 mg PO DAILY [facility] Last Admin: 10/12/24 11:47 Dose: 10 mg Morphine Sulfate (Morphine Sulfate 2 Mg/Ml Cartridge) 2 mg IV Q4H PRN PRN Reason: Severe Pain SCALE 8-10 Nicotine (Nicotine 21 Mg/Hr .Td24) 1 each TD DAILY [facility] Last Admin: 10/12/24 08:45 Dose: 1 each Ondansetron HCl (Ondansetron Hcl/Pf 4 Mg/2 Ml Vial) 4 mg INJ Q6H PRN PRN Reason: Nausea And Vomiting Pantoprazole Sodium (Pantoprazole Sodium 40 Mg Tablet.Dr) 40 mg PO DAILY [facility] Last Admin: 10/12/24 08:45 Dose: 40 mg Time Spent With Patient Time: Total time spent is greater than 50% in coordination of care (as documented) at patient's floor/unit and/or counseling patient:
[2024-10-12] MEDS: DOCUSATE SODIUM 100 MG CAPSULE PO SCH (21:19)
[2024-10-12] MEDS: CETIRIZINE HCL 10 MG TABLET PO SCH (21:19)
[2024-10-12] MEDS: ATORVASTATIN CALCIUM 10 MG TABLET PO SCH (21:26)
[2024-10-13] MEDS: 0.9 % SODIUM CHLORIDE 1000 ML 1,000 ML IV SCH (00:59)
[2024-10-13 05:41] LABS: Basophils%(Percent) Auto 0.4 (0.1-0.85); Eosinophils#(Absolute)Auto 0.3 (0.0-0.2); Eosinophils%(Percent) Auto 2.7 % (0.4-2.8); Granulocytes % - Auto 60.6 % (47.8-71.3); Hematocrit 33.9 % (35.9-46.7); Mean Corpuscular Volume 85.9 fl (81.0-93.7); Monocytes #(Absolute)- Auto 1.2 (1.1-3.1); Monocytes %(Percent)- Auto 12.6 % (3.6-9.8); Platelet Count 308 K/uL (152-353); White Blood Count 9.9 K/uL (4.3-9.3)
[2024-10-13 05:52] LABS: Potassium 3.4 mmol/L (3.6-5.2)
[2024-10-13] MEDS: POTASSIUM CHLORIDE 20 MEQ TAB.ER.PRT PO SCH (08:16)
[2024-10-13] MEDS ORDERED: NON-FORMULARY MEDICATION 1 EACH (Levocetirizine 5 mg tablet) PO SCH (09:00)
[2024-10-13] MEDS: ALBUTEROL SULFATE 2.5 MG/3 ML VIAL.NEB INH SCH (11:10)
--- NOTE | 2024-10-13 12:08 | Progress Note ---
Progress Note: Subjective Subjective Interval history: "I am feeling ok". Exam Exam: Ms. Schultz did ambulate with physical therapy yesterday evening by [facility]. She has been consistent with pain medication. Both her and son seemed to be concerned that her cueto is to be discontinued today however it was explained that it would help with both with her pneumonia and physical rehabilitation; family continues to interfere in her rehab potential by having excuses of why she cannot move. 0830 Consult with [facility] this morning Dr. Hugh cast will report back concerning further ortho recommendations. Most likely rehab due to patient ability to ambulate. Constitutional: normal general appearance, no apparent distress, average body habitus, no limitations and alert Vital Signs - 24 hr 10/12/24 16:00 10/12/24 19:10 10/12/24 20:00 Temperature 98.2 F 97.7 F Pulse Rate [Brachi al] 95 H Pulse Rate [Left B rachial] 90 95 H Respiratory Rate 16 21 Blood Pressure [Le ft Arm] 135/68 120/67 Pulse Oximetry 92 L 93 L 90 L Oxygen Delivery Me thod Nasal Cannula Nasal Cannula Nasal Cannula Oxygen Flow Rate 1 2 Fraction of Inspir ed Oxygen 28 10/13/24 00:00 10/13/24 03:22 10/13/24 07:53 Temperature 98.3 F 97.9 F 98.0 F Pulse Rate [Brachi al] 88 80 22 L Pulse Rate [Left B rachial] 88 80 85 Respiratory Rate 19 18 92 H Blood Pressure [Le ft Arm] 156/78 126/66 146/66 Pulse Oximetry 93 L 92 L 92 L Oxygen Delivery Me thod Nasal Cannula Nasal Cannula Nasal Cannula Oxygen Flow Rate 1 Fraction of Inspir ed Oxygen HENMT: normocephalic, head/scalp atraumatic, hearing grossly normal bilaterally, external ears normal, oral mucous membranes normal, oropharynx normal and dentition normal Eyes: PERRL, EOMs intact bilaterally, conjunctivae normal, no scleral icterus, normal visual rodriguez by confrontation, alignment normal, periorbital findings normal and no nystagmus Neck/C-Spine: visual inspection normal, trachea midline, cervical spine nontender, cervical full ROM noted and supple Lymph: no lymphadenopathy noted Chest: inspection of chest normal and palpation of chest normal Respiratory: breath sounds equal bilaterally, normal respiratory effort, clear to auscultation bilaterally, no wheezes, no rales, no retractions and no use of accessory muscles Cardiovascular: normal heart rate noted, regular rhythm noted and no JVD Gastrointestinal: abdomen normal to inspection, abdomen soft to palpation, nontender to palpation, nondistended and normoactive bowel sounds (hypoactive) Genitourinary: no CVA tenderness and bladder normal to palpation deferred Back/Pelvis: spine normal to inspection and no paraspinal muscle tenderness noted Mild pain elicited with pelvic compression Rt side. No crepitance noted. Slight lateral deflection noted Rt side ischium. Extremities: normal to inspection and normal to palpation RLE mildly fore-shortened. No internal or external rotation noted. Some TTP with internal rotation of thigh. 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, no movement abnormality noted, no focal motor deficit noted, no sensory deficits noted, gait abnormality noted (unable to access), speech normal, no pronator drift noted and GCS normal Psychiatry: Mental Status Exam documented within this Exam's Psych section mental status grossly normal, oriented x3, thought process normal, cooperative, affect normal and psychomotor activity normal Skin: skin color normal, no rash, no ecchymosis noted, no lacerations and skin turgor normal Progress Note: Objective Labs Labs: CBC 10/13/24 Range/Units 05:10 WBC 9.9 H (4.3-9.3) K/uL RBC 4.0 (4.00-5.50) M/uL Hgb 11.3 L (12.5-15.8) gm/dL Hct 33.9 L (35.9-46.7) % Plt Count 308 (152-353) K/uL Gran % 60.6 (47.8-71.3) % Lymph % (Auto) 23.7 (20.0-43.0) % [place] % (Auto) 12.6 H (3.6-9.8) % Eos % (Auto) 2.7 (0.4-2.8) % Baso % (Auto) 0.4 (0.1-0.85) Lymph # (Auto) 2.3 (1.1-3.1) [place] # (Auto) 1.2 (1.1-3.1) Eos # (Auto) 0.3 H (0.0-0.2) Baso # (Auto) 0.0 (0.0-0.1) Absolute Gran (auto) 6.0 (2.3-6.0) CMP 10/13/24 05:10 Sodium 140 Potassium 3.4 L Chloride 107.0 Carbon Dioxide 28 BUN 12 Creatinine 0.4 L Glucose 88 Calcium 8.5 Urine 10/09/24 10/09/24 18:55 21:50 Urine Color Yellow Yellow Urine Appearance Clear Clear Ur Specific [employer] 1.015 1.015 Urine Protein Negative Negative Urine Glucose (UA) Normal Normal Progress Note: A&P Assessment and Plan (1) Fracture of pubic ramus: Assessment and Plan: Consult PT/OT Consult [facility] Qualifiers: Encounter type: initial encounter Laterality: right (2) Pain due to fracture: Assessment and Plan: norco 7.5 q4hrs prn Morphine 2mg IV q4hrs prn (3) Community acquired pneumonia of left lower lobe of lung: Assessment and Plan: Zpak Rocephin 1gm IV daily (4) Constipation: Assessment and Plan: Colace 100mg po BID Miralax 17gm po HS (5) COPD (chronic obstructive pulmonary disease): Assessment and Plan: Zpak Rocephin 1gm IV daily Pulmicort BID Albuterol q4hrs prn Plan Pain management with prn IV Morphine and hydrocodone PO Consult [facility] Saturday, transfer if surgery required. If no surgery required then will evaluate for Rehab swing bed admission with PT. Continue Home meds Reposition patient as possible to prevent skin breakdown. Start Azithromycin and Rocephin IV for pneumonia Left lower lobe Regular diet Incentive Spirometer Continue Antibiotics for LLL Pneumonia, Rocephin and Azithromycin Repeat Chest Xray in am. Fall precautions Fall Risk Details Perry Fall Scale Risk Level: High Fall Risk Current Medications: Current Medications Hydrocodone Bitart/Acetaminophen (Hydrocodone/Acetaminophen 7.5/325mg Tablet) 1 each PO Q4H PRN PRN Reason: Moderate Pain SCALE 5-7 Last Admin: 10/13/24 08:16 Dose: 1 each Albuterol (Albuterol Sulfate 2.5 Mg/3 Ml Vial.Neb) 2.5 mg INH RQ4 ELSY Last Admin: 10/13/24 11:10 Dose: 2.5 mg Alprazolam (Alprazolam 1 Mg Tablet) 1 mg PO BEDTIME [facility]LS[facility] Last Admin: 10/12/24 21:24 Dose: 1 mg Amitriptyline HCl (Amitriptyline Hcl 10 Mg Tablet) 25 mg PO DAILY [facility] Last Admin: 10/13/24 08:22 Dose: Not Given Atorvastatin Calcium (Atorvastatin Calcium 10 Mg Tablet) 20 mg PO BEDTIME [facility] Last Admin: 10/12/24 21:26 Dose: 20 mg Budesonide (Budesonide 0.5 Mg/2 Ml Ampul.Neb) 1 mg INH RBID [facility] Cetirizine HCl (Cetirizine Hcl 10 Mg Tablet) 5 mg PO BEDTIME [facility] Last Admin: 10/12/24 21:19 Dose: 5 mg Docusate Sodium (Docusate Sodium 100 Mg Capsule) 100 mg PO DAILY PRN PRN Reason: Constipation Docusate Sodium (Docusate Sodium 100 Mg Capsule) 100 mg PO BID [facility] Last Admin: 10/13/24 08:16 Dose: 100 mg Duloxetine HCl (Duloxetine Hcl 30 Mg Capsule.Dr) 30 mg PO DAILY [facility] Last Admin: 10/13/24 08:16 Dose: 30 mg Gabapentin (Gabapentin 300 Mg Capsule) 300 mg PO DAILY [facility] Last Admin: 10/13/24 08:16 Dose: 300 mg Acetaminophen (Acetaminophen 1000 Mg/100 Ml) 1,000 mg in 100 mls @ 400 mls/hr IV Q6H PRN PRN Reason: Pain Ceftriaxone Sodium 1 gm/ (Sodium Chloride) 50 mls @ 100 mls/hr IV Q24H [facility] Last Infusion: 10/13/24 00:51 Dose: Infused Azithromycin 500 mg/ Sodium (Chloride) 250 mls @ 250 mls/hr IV DAILY [facility] Last Infusion: 10/13/24 09:22 Dose: Infused Magnesium Hydroxide (Magnesium, Aluminum Hydroxide 30 Ml Oral.Susp) 30 ml PO DAILY PRN PRN Reason: Heartburn Meloxicam (Meloxicam 7.5 Mg Tablet) 15 mg PO DAILY [facility] Last Admin: 10/13/24 08:22 Dose: Not Given Montelukast Sodium (Montelukast Sodium 10 Mg Tablet) 10 mg PO DAILY [facility] Last Admin: 10/13/24 08:16 Dose: 10 mg Morphine Sulfate (Morphine Sulfate 2 Mg/Ml Cartridge) 2 mg IV Q4H PRN PRN Reason: Severe Pain SCALE 8-10 Nicotine (Nicotine 21 Mg/Hr .Td24) 1 each TD DAILY [facility] Last Admin: 10/13/24 08:21 Dose: 1 each Ondansetron HCl (Ondansetron Hcl/Pf 4 Mg/2 Ml Vial) 4 mg INJ Q6H PRN PRN Reason: Nausea And Vomiting Pantoprazole Sodium (Pantoprazole Sodium 40 Mg Tablet.Dr) 40 mg PO DAILY [facility] Last Admin: 10/13/24 08:16 Dose: 40 mg Potassium Chloride (Potassium Chloride 20 Meq Tab.Er.Prt) 20 meq PO ONCE [facility] Last Admin: 10/13/24 08:16 Dose: 20 meq Time Spent With Patient Time: Total time spent is greater than 50% in coordination of care (as documented) at patient's floor/unit and/or counseling patient: Time with patient: 25 - 35 minutes
[2024-10-13] MEDS: BUDESONIDE 0.5 MG/2 ML AMPUL.NEB INH SCH (19:13)
[2024-10-14 07:00] LABS: Basophils%(Percent) Auto 0.5 (0.1-0.85); Eosinophils#(Absolute)Auto 0.2 (0.0-0.2); Eosinophils%(Percent) Auto 2.7 % (0.4-2.8); Granulocytes % - Auto 60.7 % (47.8-71.3); Granulocytes#(Absolute)- Auto 5.1 (2.3-6.0); Hematocrit 34.4 % (35.9-46.7); Mean Corpuscular Volume 86.2 fl (81.0-93.7); Monocytes #(Absolute)- Auto 0.9 (1.1-3.1); Platelet Count 340 K/uL (152-353); White Blood Count 8.5 K/uL (4.3-9.3)
[2024-10-14 07:09] LABS: Potassium 4.1 mmol/L (3.6-5.2)
--- NOTE | 2024-10-14 08:19 | Discharge Summary ---
DS: Providers Provider Date of admission: 10/09/24 22:22 Primary care physician: Kaley Nails NP Consults: 10/09/24 22:27 Consult to Case Management Routine Comment: Consulting Provider: Physician Instructions: Reason for consultation: delia will need placement for rehab if ortho refuses surgery 10/12/24 14:54 Consult to Occupational Therapy Routine Comment: Consulting Provider: Reason for consultation: pelvic fx Physician Instructions: pelvic fx 10/12/24 14:59 Consult to Physical Therapy Routine Comment: Consulting Provider: Reason for consultation: pelvic fx Has provider been notified: Yes Physician Instructions: Consult for Pelvic fx DS: Diagnosis Discharge Diagnosis (1) Fracture of pubic ramus: Qualifiers: Encounter type: initial encounter Laterality: right (2) Pain due to fracture: (3) Community acquired pneumonia of left lower lobe of lung: (4) Constipation: (5) COPD (chronic obstructive pulmonary disease): DS: Summary Hospital Course Hospital Course: Ms. Schultz was admitted on 10/09/24 from the ED after a fall at home acquiring a displaced R pubic rami fracture. She was also found to have pneumonia and started on NC at 2L with zpak and rocephin. Initially orthopedics was consulted for fracture but unavailable on campus. Orthopedics in [place] was consulted advising patient ambulate with outpatient rehab. PT/OT were consulted during her stay and patient did stand. Family continued to request second opinion and [facility] was consulted who advised inpatient rehab. Patient was titra adalgisa off oxygen from pneumonia, case managment was consulted for rehabilation and patient was discharged on 10/14/24 to the [facility]. Status at Discharge Functional status at discharge: wheelchair bound Overall status at discharge: patient is progressing back to baseline Time Spent with Patient Time attestation: Total time spent providing and/or coordinating discharge services: Time spent: greater than 30 minutes Exam Exam: Ms. Schultz did ambulate with physical therapy yesterday evening by samira. She has been consistent with pain medication. Both her and son seemed to be concerned that her cueto is to be discontinued today however it was explained that it would help with both with her pneumonia and physical rehabilitation; quin crane continues to interfere in her rehab potential by having excuses of why she cannot move. 0830 Consult with this morning Dr. Hugh cast will report back concerning further ortho recommendations. Most likely rehab due to patient ability to ambulate. Constitutional: normal general appearance, no apparent distress, average body habitus, no limitations and alert Vital Signs - 24 hr 10/13/24 11:15 10/13/24 12:00 10/13/24 15:30 Temperature 97.9 F Pulse Rate [Brachi al] Pulse Rate [Left B rachial] 87 Respiratory Rate 20 Blood Pressure [Le ft Arm] 143/65 Pulse Oximetry 90 L 92 L 92 L Oxygen Delivery Me thod Nasal Cannula Oxygen Flow Rate 2 Fraction of Inspir ed Oxygen 10/13/24 15:53 10/13/24 19:14 10/13/24 19:59 Temperature 98.4 F 98.2 F Pulse Rate [Brachi al] 91 H Pulse Rate [Left B rachial] 89 91 H Respiratory Rate 21 20 Blood Pressure [Le ft Arm] 142/71 101/48 Pulse Oximetry 92 L 92 L 92 L Oxygen Delivery Me thod Nasal Cannula Nasal Cannula Oxygen Flow Rate Fraction of Inspir ed Oxygen 10/13/24 22:42 10/14/24 00:00 10/14/24 00:53 Temperature 98.0 F Pulse Rate [Brachi al] 87 Pulse Rate [Left B rachial] 87 Respiratory Rate 18 Blood Pressure [Le ft Arm] 119/49 Pulse Oximetry 92 L 96 96 Oxygen Delivery Me thod Nasal Cannula Nasal Cannula Oxygen Flow Rate 2 Fraction of Inspir ed Oxygen 28 10/14/24 03:50 10/14/24 03:51 Temperature 98.8 F Pulse Rate [Brachi al] 84 Pulse Rate [Left B rachial] 84 Respiratory Rate 17 Blood Pressure [Le ft Arm] 131/66 Pulse Oximetry 96 95 Oxygen Delivery Me thod Nasal Cannula Oxygen Flow Rate Fraction of Inspir ed Oxygen HENMT: normocephalic, head/scalp atraumatic, hearing grossly normal bilaterally, external ears normal, oral mucous membranes normal, oropharynx normal and dentition normal Eyes: PERRL, EOMs intact bilaterally, conjunctivae normal, no scleral icterus, normal visual rodriguez by confrontation, alignment normal, periorbital findings normal and no nystagmus Neck/C-Spine: visual inspection normal, trachea midline, cervical spine nontender, cervical full ROM noted and supple Lymph: no lymphadenopathy noted Chest: inspection of chest normal and palpation of chest normal Respiratory: breath sounds equal bilaterally, normal respiratory effort, clear to auscultation bilaterally, no wheezes, no rales, no retractions and no use of accessory muscles Cardiovascular: normal heart rate noted, regular rhythm noted and no JVD Gastrointestinal: abdomen normal to inspection, abdomen soft to palpation, nontender to palpation, nondistended and normoactive bowel sounds (hypoactive) Genitourinary: no CVA tenderness and bladder normal to palpation deferred Back/Pelvis: spine normal to inspection and no paraspinal muscle tenderness noted Mild pain elicited with pelvic compression Rt side. No crepitance noted. Slight lateral deflection noted Rt side ischium. Extremities: normal to inspection and normal to palpation RLE mildly fore-shortened. No internal or external rotation noted. Some TTP with internal rotation of thigh. 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, no movement abnormality noted, no focal motor deficit noted, no sensory deficits noted, gait abnormality noted (unable to access), speech normal, no pronator drift noted and GCS normal Psychiatry: Mental Status Exam documented within this Exam's Psych section mental status grossly normal, oriented x3, thought process normal, cooperative, affect normal and psychomotor activity normal Skin: skin color normal, no rash, no ecchymosis noted, no lacerations and skin turgor normal DS: Data Data Completed and Pending Labs on day of discharge: Labs from last 24 hours 10/14/24 06:30 WBC 8.5 RBC 4.0 Hgb 11.4 L Hct 34.4 L MCV 86.2 MCH 28.6 MCHC 33.2 RDW 15.6 H Plt Count 340 MPV 6.9 Gran % 60.7 Lymph % (Auto) 25.1 Falls % (Auto) 11.0 H Eos % (Auto) 2.7 Baso % (Auto) 0.5 Lymph # (Auto) 2.1 Falls # (Auto) 0.9 L Eos # (Auto) 0.2 Baso # (Auto) 0.0 Absolute Gran (auto) 5.1 Sodium 141 Potassium 4.1 Chloride 107.0 Carbon Dioxide 30 Anion Gap 4.0 BUN 16 Creatinine 0.5 L Estimated GFR 96.5 Glucose 88 Calcium 8.7 Discharge Plan Discharge Disposition: [facility] Condition: Stable Discharge Medications: New polyethylene glycol 3350 17 gram Powder In Packet 17 g PO DAILY Qty: 14 0RF cetirizine 10 mg Tablet 5 mg PO BEDTIME Qty: 7 0RF alprazolam 1 mg Tablet 1 mg PO BEDTIME Qty: 7 0RF hydrocodone-acetaminophen 7.5-325 mg Tablet 1 tab PO Q4H PRN (Reason: Moderate Pain Scale 5-7) Qty: 10 0RF pantoprazole 40 mg Tablet,Delayed Release (Dr/Ec) 40 mg PO DAILY Qty: 7 0RF docusate sodium 100 mg Capsule 100 mg PO BID Qty: 20 0RF nicotine 7 mg/24 hr Patch 24 Hour 7 mg transdermal DAILY Qty: 7 0RF Continued albuterol sulfate 90 mcg/actuation HFA aerosol inhaler 2 puff INHALATION Q4H PRN (Reason: wheezing) amitriptyline 25 mg tablet 25 mg PO DAILY atorvastatin 20 mg tablet 20 mg PO BEDTIME duloxetine 30 mg capsule,delayed release(DR/EC) 30 mg PO DAILY gabapentin 300 mg capsule 300 mg PO DAILY hydrocodone-acetaminophen 10-325 mg tablet 1 tab PO TID levocetirizine 5 mg tablet 5 mg PO DAILY meloxicam 15 mg tablet 15 mg PO DAILY montelukast 10 mg tablet 10 mg PO DAILY Discharge Orders: Discharge Order (Routine); Ordered 10/14/24 Ordered By: Redd Olmstead Activity: ambulate only with your walker, as per physical therapy and increase activity as tolerated Activity Detail: per PT Diet Detail: Regular Hospital Course: Ms. Schultz was admitted on 10/09/24 from the ED after a fall at home acquiring a displaced R pubic rami fracture. She was also found to have pneumonia and started on NC at 2L with zpak and rocephin. Initially orthopedics was consulted for fracture but unavailable on campus. Orthopedics in [place] was consulted advising patient ambulate with outpatient rehab. PT/OT were consulted during her stay and patient did stand. Family continued to request second opinion and [facility] was consulted who advised inpatient rehab. Patient was titrated off oxygen from pneumonia, case managment was consulted for rehabilation and patient was discharged on 10/14/24 to the [facility]. Print Language: Syriac Patient Instructions: Pelvic Fracture (DC) Follow-Ups: Kaley Nails NP [Primary Care Provider] - Discharge Date/Time: 10/14/24 11:57
[2024-10-14] MEDS: polyethylene glycoL 3350 17 GM POWD.PACK PO SCH (09:19)
[2024-10-14 09:27] VITALS: BP 134/73; PULSE 86; RESP 19; TEMP 98.1
== END 2024-10-14 11:57 | DRG 535 ==
LOC: ED 17:42 → MS 22:22
PROVIDERS: ADMIT Nurse Practitioner Family; ATTEND Nurse Practitioner Family
DX: Y92.009 Unspecified place in unspecified non-institutional (private) residence as the place of occurrence of the external cause; Z88.1 Allergy status to other antibiotic agents; W01.0XXA Fall on same level from slipping, tripping and stumbling without subsequent striking against object, initial encounter; S32.591A Other specified fracture of right pubis, initial encounter for closed fracture; H40.9 Unspecified glaucoma; J18.9 Pneumonia, unspecified organism; K59.00 Constipation, unspecified; J44.0 Chronic obstructive pulmonary disease with (acute) lower respiratory infection; Z53.29 Procedure and treatment not carried out because of patient's decision for other reasons; F17.200 Nicotine dependence, unspecified, uncomplicated; Z79.899 Other long term (current) drug therapy